=== PATIENT | male | born 1960 | race Caucasian/White ===

== ENCOUNTER → 2020-02-01 | Outpatient (CLI) | payer BC ==
[~2020-02-01] MED LIST: CRESTOR5 MG PO; DEXT20TA2 PO; DIAZ5TAB4 PO; LOSA1TAB25 PO; OXYC1TAB15 PO; TOFA11TA PO
== END | disposition home or self-care (01) ==
LOC: LAB 09:59
PROVIDERS: ATTEND Surgery
DX: Z01.812 Encounter for preprocedural laboratory examination (principal); K40.90 Unilateral inguinal hernia, without obstruction or gangrene, not specified as recurrent; Z20.828 Contact with and (suspected) exposure to other viral communicable diseases
CPT/HCPCS: U0003-CS

== ENCOUNTER → 2020-02-03 | Day surgery (SDC) | payer BC ==
[~2020-02-03] VITALS: Ht 177.8 cm; Wt 95.5 kg
[~2020-02-03] MED LIST changes: +BACITRACIN 50,000 UNIT in IV NORMAL SALINE 500ML BAG 500 ML IRR ONE; +BUPIVACAINE-EPI 0.5%-1:200000 MPF 30 ML VIAL. ONE; +DEXAMETHASONE SOD PHOS 4 MG/ML VIAL ONE; +GLYCOPYRROLATE 1 MG/5 ML VIAL. ONE; +HYDROmorphone 2 MG/ML VIAL IV PRN; +IV RINGERS,LACTATED 1000ML 1,000 ML IV SCH; +KETOROLAC 30 MG/ML VIAL. ONE; +LIDOCAINE 1% PF 2 ML VIAL. ID PRN; +LIDOCAINE 2% PF 5 ML VIAL. ONE; +MIDAZOLAM HCL/PF 2 MG/2 ML VIAL. ONE; +MORPHINE SULFATE 2 MG/ML VIAL. IV PRN; +NEOSTIGMINE METHYLSULFATE 5 MG/5 ML SYRINGE. ONE; +ONDANSETRON PF 4 MG/2 ML VIAL. IV PRN; +ONDANSETRON PF 4 MG/2 ML VIAL. ONE; +PROCHLORPERAZINE 10 MG/2 ML VIAL. IV PRN; +PROPOFOL 10 MG/ML (20ML) VIAL. IV ONE; +ROCURONIUM 50 MG/5 ML VIAL. ONE; +SEVOFLURANE 31 TO 60 MINUTES. IH ONE; +fentaNYL PF VIAL 100 MCG/2 ML VIAL IV PRN; +fentaNYL PF VIAL 100 MCG/2 ML VIAL ONE; +fentaNYL PF VIAL 250 MCG/5 ML VIAL ONE; +oxyCODONE/APAP 5/325 1 TAB TABLET PO ONE
--- NOTE | 2020-02-03 11:51 | PDOC4 ---
Operative Note Operative Note Operative Note: Preoperative Diagnosis: Right inguinal hernia Postoperative Diagnosis: Same Procedure: Right inguinal hernia repair with mesh Surgeon: Ananda Auto Mechanic Apprentice: RJ Lopes Anesthesia: General EBL: 10 mL Specimen: None Drains: None Complications: None Indication: The patient is a 59-year-old male who was referred with a right inguinal hernia. He was offered surgical repair. The risks of surgery were discussed which include bleeding, infection, recurrence, pain, anesthetic risk, potential need for additional surgery procedure. He understands and would like to proceed. Description: The patient was taken to the operating room and placed supine on the operating table. General anesthesia was performed. The right groin was shaved and prepped with ChloraPrep and draped in a standard surgical manner. An incision was made in the right groin with a scalpel. Cautery dissection was carried down to the external oblique aponeurosis. The aponeurosis was opened down to the external ring. The contents of the inguinal canal were digitally mobilized and encircled with a [place] drain. There was a small to moderate sized indirect hernia sac present. The sac was mobilized from the surrounding structures and fully reduced. The defect was filled with an extra-large Phasix mesh plug. The plug was sutured around its periphery with 2-0 Vicryl. The entire inguinal floor was then reinforced with a Prolene keyhole mesh. The mesh was sutured into position with 2-0 Vicryl as well. Upon completion the mesh rested well providing full coverage of the inguinal floor and the plug was intact deep to it. The external oblique was closed over the mesh with 2-0 Vicryl. Subcutaneous tissue was closed with 3-0 Vicryl and skin approximated with 4-0 Monocryl. The incision was infiltrated with half percent Marcaine and Steri-Strips and a dressing were applied. The patient tolerated the procedure well and was sent to the recovery room in stable condition. At the end of the case all counts were correct. MIR BOWLES MD Feb 03, 2020 11:51
--- NOTE | 2020-02-03 11:53 | DISCH ---
DISCHARGE INSTRUCTIONS Condition on Discharge Condition on Discharge: Stable Activity After Discharge Activity Instructions for Disc: Other, see below (No lifting over 20 lbs, s trenuous activity X 4 weeks) Driving Instructions after Dis: Other, see below (No driving while taking po pain meds) Diet after Discharge Diet after Discharge: Regular Wound Incision Care Wound/Incision Care: Other, see below (Keep dressing clean and dry X 72 hours, may then remove and shower; the steristrips fall off by themselves) Follow-Up Follow up with: Dr Bowles in 2 weeks in office, call for appt [phone] MIR BOWLES MD Feb 03, 2020 11:53
[2020-02-03 12:40] VITALS: BP 119/75
== END | disposition home or self-care (01) ==
LOC: SURG 09:35
PROVIDERS: ATTEND Surgery
DX: K40.90 Unilateral inguinal hernia, without obstruction or gangrene, not specified as recurrent (principal); E78.00 Pure hypercholesterolemia, unspecified; Z88.0 Allergy status to penicillin; Z88.8 Allergy status to other drugs, medicaments and biological substances; Z72.89 Other problems related to lifestyle; Z87.891 Personal history of nicotine dependence; Z79.899 Other long term (current) drug therapy
CPT/HCPCS: 49505; A7015; C1781; J1100; J1885; J1956; J2250; J2405; J2704; J2710; J3010; J3490; J7040